=== PATIENT | female | born 1945 | race Caucasian/White ===

== ENCOUNTER 2016-10-12 19:19 | Inpatient (IN) | payer MEDICARE ==
[~2016-10-12] VITALS: Ht 157.5 cm; Wt 69.5 kg
[2016-10-12 19:00] VITALS: BP 153/87
[~2016-10-12 19:19] MED LIST: ARICEPT10 MG PO; ARTANE2 MG PO; ARTIFICIAL TEAR15 ML EACH EYE; ATIVAN0.5 MG PO; CELEXA10 MG PO; DEPAKOTE250 MG PO; DEPAKOTE500 MG PO; FISH OIL 1,0001 CA1 PO; LISINOPRIL5 MG PO; MELATONIN 3 MG1 TAB PO; MOBIC7.5 MG PO; NAMENDA10 MG PO; NAMENDA5 MG PO; NORCO 10/325 TA1 TA1 PO; NORCO 5/325 TAB1 TA1 PO; PRAVACHOL10 MG PO; PREPARATION H O57 GM TP; REMERON15 MG PO; TUMS500 MG PO; VITAMIN D31000 UNIT PO; ZYPREXA10 MG PO
[2016-10-12] MEDS ORDERED: VITAMIN B COMPL1 TAB PO (19:52)
[2016-10-12] MEDS ORDERED: VISTARIL25 MG PO (19:54)
[2016-10-12] MEDS ORDERED: RESTORIL15 MG PO (19:56)
[2016-10-12] MEDS ORDERED: VITAMIN D31000 UNIT PO (19:57)
[2016-10-12] MEDS ORDERED: GINKGO BILOBA120 MG PO (19:59)
[2016-10-12] MEDS ORDERED: ACETAMINOPHEN325 MG PO (20:01)
[2016-10-12] MEDS ORDERED: ZYPREXA5 MG PO (20:02)
[2016-10-12] MEDS ORDERED: HALDOL5 MG PO (20:03)
[2016-10-12 20:16] VITALS: BP 153/87
--- NOTE | 2016-10-13 00:34 | NUR ---
Recieved atient from [facility] by group home van accompanied by shelter staff, alert and oriented to self, consents signed and code word 'fine and dandy' medications entered and labs ordered, will continue to monitor.
[2016-10-13 06:50] LABS: BASOPHILS 0.1 % (0.0-2.0); EOSINOPHILS 2.3 % (0-7); HEMATOCRIT 39.5 % (36.0-48.0); HEMOGLOBIN 13.3 g/dL (12-16); IMMATURE GRANULOCYTES 0.1 % (0-5); LYMPHOCYTES 40.8 % (15-50); MCH 29.5 pg (26.0-34.0); MCHC 33.7 g/dL (31.0-37.0); MCV 87.6 fL (80.0-100.0); MEAN PLATELET VOLUME 10.9 fL (7.4-10.4); MONOCYTES 9.9 % (2-11); NEUTROPHILS 46.8 % (40-80); RBC 4.51 10x6/uL (4.00-5.40); RDW 14.6 % (11.5-14.5); WBC 6.9 10x3/uL (4.8-10.8)
[2016-10-13 06:51] LABS: PLATELET COUNT 184 10x3/uL (130-400)
[2016-10-13 06:55] LABS: HEMOGLOBIN A1C 5.2 % (4.8-6.0)
[2016-10-13 07:12] LABS: ALBUMIN 4.2 g/dL (3.4-5.0); ANION GAP 17.3 mmol/L (8-16); BILIRUBIN - TOTAL 0.42 mg/dL (0.2-1.3); CALCIUM 9.7 mg/dL (8.5-10.1); CARBON DIOXIDE 24.7 mmol/L (21.0-32.0); CHOL - HDL RATIO 2.2 ratio (2.3-4.1); CREATININE - SERUM 1.1 mg/dL (0.6-1.3); PROTEIN - SERUM 7.2 g/dL (6.4-8.2); THYROID STIMULATING HORMONE 1.42 uIU/mL (0.36-3.74)
[2016-10-13 08:30] VITALS: BP 154/91
--- NOTE | 2016-10-13 12:23 | NUR ---
Pt cooperative with staff. Hallucinating, talking to unseen others, delusional. Gets upset if other pts invade her space or looks at her. Tells them to "look away", "back away". Although will try to be helpful to other patients at times. Medications given as ordered. Redirect, reorient as needed. Pt compliant with meds, redirects well. Will continue to monitor and continue plan of care.
[2016-10-13 15:29] VITALS: BMI 23.2
--- NOTE | 2016-10-13 15:29 | NUR ---
1405 Pt combative, kicking, biting, scratching staff when redirected back into dayroom. Ativan 0.5mg po pulled to give. Pt refused to take. Wasted at this time. 1445 Pt continues to be combative. Ativan 0.5mg IM given in left hip.
[2016-10-13 18:02] VITALS: BP 154/91; Ht 157.5 cm; Wt 69.5 kg
[2016-10-13 20:27] VITALS: BP 87/63
--- NOTE | 2016-10-14 04:22 | NUR ---
B) Recieved sitting in the day room on the couch, alert and oriented to self, impatient and restless at times, I) Administered perscribed medications, redirected as needed, R) Medications refused by patient because 'they are not the right shape and color' no redirection or explianation would convince her to take her medication P) Continue plan of care, continue to monitor.
[2016-10-14 05:16] LABS: RAPID PLASMA REAGIN Non Reactive (Non Reactive)
[2016-10-14 06:15] LABS: VITAMIN D 25 HYDROXY 42.3 ng/mL (30.0-100.0)
[2016-10-14 09:17] LABS: FOLATE (FOLIC ACID) - SERUM 19.1 ng/mL (>3.0)
[2016-10-14 09:40] VITALS: BP 164/108
--- NOTE | 2016-10-14 15:31 | NUR ---
(B)RECEIVED PATIENT SITTING IN A CHAIR AT THE NURSES STATION. ORIENTED TO SELF, MONTH AND DATE. POOR INSIGHT INTO THE REASON FOR HOSPITALIZATION RELATING "JUST GOT BUSY BUSY BUSY AND NEEDED SOME SLEEP. MY THINKING NEEDS TO BE CHECKED." CHILDLIKE AT TIMES AEB WANTING TO WHISPER IN YOUR EAR OR WILL SPELL A WORD INSTEAD OF SAYING IT. OBSERVED TALKING TO UNSEEN OTHERS AND WHEN ASKED WHO SHE WAS TALKING TO PATIENT RELATED (SPELLLING THE ANSWER) "MYSELF." FREQUENTLY ASK TO MAKE A PHONE AFTER BEONG TOLD NUMEROUS TIMES THAT PHONE CALLS START AT 5:30. RANDOMLY SINGS SONGS. (I)ADMINISTER MEDS AND MONITOR COM- PLIANCE. REDIRECT FOR CHILDLIKE BEHAVIORS. (R)MED COMPLIANT. POOR REDIRECTION AND CONTINUES TO SEEK ATTENTION. (P)CONTINUE POC.
[2016-10-14 19:30] VITALS: BP 186/95
--- NOTE | 2016-10-15 04:40 | NUR ---
PATIENT IN DAYROOM, CALLING OUT TO STAFF CONSISTENTLY TO TALK, NON-SENSICAL. REFUSES MEDICATION. LAUGHING AND TALKING TO NO ONE. WHEN ASKED ABOUT HALLUCINATIONS PATIENT DENIES. PATIENT IS GUARDED AND ACCUSED NEIGHBOR OF "COPYING" HER. TRIED TO REDIRECT BUT PATIENT IS UNABLE TO FOLLOW CONVERSATION. CONTINUE TO MONITOR. CONTINUE PLAN OF CARE.
[2016-10-15 08:27] VITALS: BP 138/96
--- NOTE | 2016-10-15 09:42 | PN ---
PATIENT:STEPHANIE DOS SANTOS MEDICAL RECORD: [id number] LOCATION:[facility] ADMISSION DATE: 10/12/16 PROGRESS NOTE DATE OF SERVICE: 10/14/2016 SUBJECTIVE: No coherent complaint. OBJECTIVE: The patient continues to show intrusiveness and inappropriate behavior. The patient has to be redirected from interfering with other patients. On exam, the patient shows peculiar mood. She alternates between laughing and behaving in a hostile fashion. Speech is characterized by loose associations. Content of thought is delusional. Sensorium shows no change. ASSESSMENT: No change in diagnosis. PLAN: 1. Maintain current medication. 2. Continue supportive therapy. TRANSINT:[id number] Voice Confirmation ID: [id number] DOCUMENT ID: [id number] HOLLI CASTRO III, MD at 0942 CC: [id number] DICTATION DATE: 10/14/16 1307 CATH LAB MANAGER: 10/14/16 1559 ADM IN [place] [address] [place] [id number]
--- NOTE | 2016-10-15 09:42 | PSY ---
PATIENT NAME:STEPHANIE DOS SANTOS MEDICAL RECORD: [id number] : 43 LOCATION:[facility] ADMISSION DATE: 10/12/16 ACCOUNT: [id number] PSYCHIATRIC EVALUATION DATE OF EVALUATION: 10/13/16 Initial Psychiatric Workup IDENTIFYING DATA: This is the second Snf admission and one of numerous lifetime psychiatric hospitalizations for this 71-year-old unmarried white female. HISTORY OF PRESENT ILLNESS: This patient is a long-term resident of [facility]. She carries a past history of both schizophrenia and dementia. [facility] reports that the patient had not been sleeping for about 2 days. She had become combative, especially with other residents and had to be redirected. The patient had been treated on routine basis with Zyprexa, but for some reason been stopped, it was reinstituted, but the patient has continued to show worsened psychotic behavior, agitation and eventually combativeness. For this reason, she was admitted. PAST PSYCHIATRIC HISTORY: The patient has had numerous previous psychiatric hospitalizations. She was followed for a number of years at [facility]. She has had treatment with a wide range of antipsychotic medications. Previous inpatient stays have included [facility]. PAST MEDICAL HISTORY: Significant for osteoarthritis, rectal prolapse, osteoporosis, old CVA and a previous diagnosis of Alzheimer's. The patient also has a history of hypertension for which she takes lisinopril. MEDICATION: At the time of admission included lisinopril 40 mg daily, vitamin D supplements, fish oil, Restoril 15 mg at bedtime, Pravachol 10 mg at bedtime for hyperlipidemia and Zyprexa 5 mg daily. ALLERGIES: None listed. FAMILY HISTORY: Noncontributory. SOCIAL HISTORY: The patient is single. No substance abuse issues, chronic custodial resident. MENTAL STATUS: On interview, the patient is extremely disorganized. Her mood is somewhat irritable. Affect is quite peculiar and inappropriate. Speech is characterized by loose associations. Content of thought exhibits delusional ideation and possible auditory hallucinations. On sensorium testing, the patient is oriented to person and to place, but does not cooperate further for sensorium testing. DIAGNOSTIC IMPRESSION: AXIS I: Schizophrenia, chronic undifferentiated type, possible dementia by history. AXIS II: No diagnosis. AXIS III: Hypertension, hypercholesterolemia. AXIS IV: Severe. AXIS V: 28. PLAN: 1. The patient is admitted for medication adjustment as indicated. 2. Diet and activities as tolerated. 3. Supportive therapy. 4. Coordinate with referring facility regarding aftercare. TRANSINT:[id number] Voice Confirmation ID: [id number] DOCUMENT ID: [id number] HOLLI CASTRO III, MD at 0942 CC: [id number] DICTATION DATE: 10/13/16 1211 WINDOW GLAZIER: 10/13/16 1238 ADM IN [place] [id number] [place] [id number]
--- NOTE | 2016-10-15 16:14 | NUR ---
(B)RECEIVED PATIENT SITTING IN A CHAIR AT THE NURSES STATION. ORIENTED TO SELF AND PLACE. RELATES THIS PLACE IS "PSYCHIATRY SO YOU CAN CHECK YOUR MENTALITY." POOR INSIGHT INTO THE REASON FOR HOSPITALIZATION RELATING "THEY HAD AN IDEA I NEEDED TO BE HERE AND HERE I AM." PATIENT INFORMED TO THE REPORTED REASON FOR HOSPITALIZATION AND PETEY RELATES "NONE OF THAT IS TRUE." CHILDLIKE AND MAKES REQUEST SUCH "I WANT YOU TO CALL DR SINGLETARY RIGHT NOW, RIGHT NOW" AND STARTS WHISPERING IN NURSE'S EAR THAT SHE WANTS A INFORMATION IN A BOOK ABOUT HOW TO LOOSE WEIGHT AND TELLS THE NURSE IT AN EMERGENCY. WHEN PATIENT IS TOLD THAT IS NOT AN EMERGENCY SHE RELATES "OH NO NO NO. I MEAN A BOOK ABOUT HOW TO GAIN WEIGHT."(I)ADMINISTER MEDS AND MONITOR COMPLIANCE. REDIRECT FOR CHILDLIKE BEHAVIOR . (R)MED COMPLIANT. POOR REDIRECTION AEB MHT BROUGHT PATIENT SOME COFFEE AND PATIENT STOOD IN PLACE WITH ARMS STRETCHED OUT WANTING TECH TO COME AND GIVE HER A HUG. (P)CONTINUE POC AND MAINTAIN FALL PRECAUTIONS.
[2016-10-15 19:30] VITALS: BP 169/90
--- NOTE | 2016-10-16 01:09 | NUR ---
B) Recieved ambulating independantly in the dayroom and dinning room, alert and oriented to self, confused and wandering , I) Administered perscribed medications, redirected as needed, R) Medication compliant, restless at times, P) Continue plan of care, continue to monitor.
[2016-10-16 07:00] VITALS: BP 139/83
--- NOTE | 2016-10-16 16:45 | NUR ---
RECEIVED THIS AM SITTING IN CHAIR AT NURSES STATION.IS ORIENTED TO PERSON AND YEAR.VERY INTRUSIVE,WANTS ALL THE ATTENTION.AMBULATORY WITH STEADY GAIT.WILL CONTINUE WITH PLAN OF CARE,MONITOR FOR SAFETY AND CHANGES.
[2016-10-16 19:30] VITALS: BP 131/106
--- NOTE | 2016-10-16 22:07 | NUR ---
B) PATIENT IS DELUSIONAL AND ADMITS THAT SHE IS HEARING VOICES, SHE SAYS SHE HEARS VOICES, BUT WILL NOT SAY WHAT THEY ARE SAYING, SHE SAYS "SOMETIMES THEY TELL ME SECRETS" PATIENT IS BIZARRE, SHE WILL SAY TO SOME OTHER PATIENTS IF SHE THINKS THEY ARE LOOKING AT HER "TURN AROUND AND FACE THE OTHER WAY" PATIENT AMBULATES INDEPENDENTLY. I) PROVIDE PRESCRIBED MEDS. R) PATIENT IS COMPLIANT WITH MEDS TONIGHT, NO AGGRESSION SEEN THIS PM. P) CONTINUE PLAN OF CARE.
--- NOTE | 2016-10-17 08:51 | PN ---
PATIENT:STEPHANIE DOS SANTOS MEDICAL RECORD: [id number] LOCATION:[facility] ADMISSION DATE: 10/12/16 PROGRESS NOTE DATE OF SERVICE: 10/15/2016 SUBJECTIVE: No coherent complaint. OBJECTIVE: The patient tends to be noncompliant with medication. She exhibits paranoia or delusional ideation. She is intrusive, childlike and demanding. On exam, mood is still somewhat irritable. Affect is very childlike. Speech is rambling and shows loose associations. Content of thought exhibits delusional ideation. Sensorium shows no changed. ASSESSMENT: No change in diagnosis. PLAN: 1. Maintain current medication. 2. Continue supportive therapy. TRANSINT:[id number] Voice Confirmation ID: [id number] DOCUMENT ID: [id number] HOLLI CASTRO III, MD at 0851 CC: [id number] DICTATION DATE: 10/15/16 1116 RIVERS [employer] LAKES BOATMAN: 10/15/16 1146 ADM IN [place] [id number] [place] [id number]
[2016-10-17 09:12] VITALS: BP 138/86
--- NOTE | 2016-10-17 14:10 | NUR ---
B.) Received patient this am, ambulatory on unit. Alert and oriented to name and place, states situation as " I'm here to have my thinking rearranged, making sure my thinking is correct." I.) Monitor medication compliance, redirect for any aggressive or inappropriate beahvior.Refocus to reality versus nonreality. Encourae group participation. Monitor safety. R.) Compliant with medications, occludes responses to some questions, starts whispering, " thats not pubic information, you can clean elbows with a cotton ball and lemon juice." sits on sofa with sheet over her head and peeks out periodiaclly whispering. P.) Continue plan of care and moitoring of behavior and safety.
[2016-10-17 20:23] VITALS: BP 137/72
--- NOTE | 2016-10-17 20:45 | NUR ---
RECEIVED IN HALLWAY. WALKING ABOUT TALKING TO PEERS AND STAFF. ATTEMPTS TO ENTER WRONG ROOM. REDIRECT AND REORIENT NEEDED. COOPERATIVE WITH CARE AND ASSESSMENT. NO SIGNS OF AGGRESSION. REINFORCE FALLS SAFETY. PM MEDS GIVEN ORDERED. RESTING IN BED EYES CLOSED AT THIS TIME. CONTINUE PLAN OF CARE
[2016-10-18 08:13] VITALS: BP 164/77
--- NOTE | 2016-10-18 16:14 | NUR ---
PT IS VERY LABILE WITH MOOD SHIFTING FROM AGITATED TO CALM VERY QUICKLY. PT INTRUSIVE INTO THE CARE OF OTHER PATIENTS. ORIENTED TO PERSON AND PLACE. REDIRECTED NEEDED. PT SET WITH BLANKET OVER HEAD BECAUSE SHE WAS UPSET AFTER BEING REDIRECTED. MEDICATIONS ADMINISTERED ORDERED. FALL PRECAUTIONS MAINTAINED. WILL CONTINUE TO MONITOR AND CONTINUE WITH PLAN OF CARE.
[2016-10-18 20:13] VITALS: BP 183/97
--- NOTE | 2016-10-19 00:09 | NUR ---
RECEIVED IN HALLWAY. WALKING ABOUT TALKING TO STAFF AND PEERS. INTRUSIVE AT TIME AND ATTENTION SEEKING AT TIME. CALM AND COOPERATIVE WITH CARE AND ASSESSMENT. NOTED PARANOIA AT MED PASS. STATING SOMETHING IS IN THE WATER. TOOK MEDS WHOLE BUT CONTINUES TO REFUSE WATER. REDIRECT AND REORIENT. RESTING EYES CLOSED AT THIS TIME. CONTINUE PLAN OF CARE
--- NOTE | 2016-10-19 08:11 | PN ---
PATIENT:STEPHANIE DOS SANTOS MEDICAL RECORD: [id number] LOCATION:[facility] ADMISSION DATE: 10/12/16 PROGRESS NOTE DATE OF SERVICE: 10/18/2016 SUBJECTIVE: No new complaint. OBJECTIVE: The patient remains intrusive. She continues to show very peculiar and inappropriate affect. She has to be redirected frequently. On exam, mood is elevated. Affect is bizarre. Speech is rambling and tangential. Content of thought is positive for delusional ideation. Sensorium shows no change. ASSESSMENT: No change in diagnosis. PLAN: 1. Continue Zyprexa Zydis 10 mg twice a day. 2. Continue other current medications. 3. Continue supportive therapy. TRANSINT:[id number] Voice Confirmation ID: [id number] DOCUMENT ID: [id number] HOLLI CASTRO III, MD at 0811 CC: [id number] DICTATION DATE: 10/18/16 1224 REGISTRAR NURSES' REGISTRY: 10/18/16 1842 ADM IN [place] [id number] [place] [id number]
--- NOTE | 2016-10-19 08:11 | PN ---
PATIENT:STEPHANIE DOS SANTOS MEDICAL RECORD: [id number] LOCATION:[facility] ADMISSION DATE: 10/12/16 PROGRESS NOTE DATE OF SERVICE: 10/17/2016 SUBJECTIVE: No coherent complaint. OBJECTIVE: The patient continues to exhibit paranoid delusional ideation. She is very childlike, very intrusive and requires a redirection. She has been variably cooperative regarding taking medications. On exam, mood is euthymic. Affect is very shallow, simple childlike. Content thought is positive for delusional ideation. Sensorium shows no changes. ASSESSMENT: No change in diagnosis. PLAN: 1. Change Zyprexa to Zyprexa Zydis 10 mg b.i.d. 2. Continue other current medications. 3. Continue supportive therapy. TRANSINT:[id number] Voice Confirmation ID: [id number] DOCUMENT ID: [id number] HOLLI CASTRO III, MD at 0811 CC: [id number] DICTATION DATE: 10/17/16 1232 SKI GUIDE: 10/17/162002 ADM IN [facility] [address] [place] [address]
[2016-10-19 08:36] VITALS: BP 110/61
--- NOTE | 2016-10-19 09:00 | NUR ---
B) Rec'd pt in dining room for b'fast, appetite fair, meds admin as ordered, child-like behavior noted, took meds without difficulty. I) Administer meds as ordered, provide group activity, encouraging continued participation. R) No s/s adverse reaction to medications, no aggression noted, increased confusion noted. P) Cont plan of care including meds and group activity.
--- NOTE | 2016-10-19 10:54 | NUR ---
Nutrition Monitoring and Eval: Chart reviewed. Pt is eating 78% meal avg on a regular diet. Meds and labs noted. +BM. Pt continues at low nutritional risk. RD will continue to monitor pt progress per policy.
[2016-10-19 19:30] VITALS: BP 143/79
--- NOTE | 2016-10-19 21:55 | PN ---
PATIENT:STEPHANIE DOS SANTOS MEDICAL RECORD: [id number] LOCATION:[facility] ADMISSION DATE: 10/12/16 PROGRESS NOTE DATE OF SERVICE: 10/19/2016 SUBJECTIVE: No new complaint. OBJECTIVE: The patient continues to be very childlike and attention seeking. She becomes petulant when she is not the center of attention. On exam, mood is somewhat irritable. Affect is very shallow and at times silly. Content of thought focuses on delusional ideation of a paranoid nature. Sensorium shows no change. ASSESSMENT: No change in diagnosis. PLAN: 1. Continue Zyprexa Zydis 10 mg twice a day. 2. Continue other current medications. 3. Continue supportive therapy. TRANSINT:[id number] Voice Confirmation ID: [id number] DOCUMENT ID: [id number] HOLLI CASTRO III, MD at 2155 CC: [id number] DICTATION DATE: 10/19/16 1128 BUYER BROKER: 10/19/16 1934 ADM IN [place] [id number] [place] [id number]
--- NOTE | 2016-10-19 23:32 | NUR ---
B) Recieved patient ambulating indepedantly in the dinning room, alert and oriented to self and being in a hospital, calm and pleasant, asks lots of questions I) Administered perscribed medications, answered questions as needed, R) Medication compliant, wants to know the name of each pill before taking and what it is for, P0 Continue plan of care, continue to monitor.
[2016-10-20 09:32] VITALS: BP 149/75
--- NOTE | 2016-10-20 10:35 | NUR ---
(B)RECEIVED PATIENT SITTING IN A CHAIR AT THE NURSE'S STATION. ORIENTED X3. RELATES REASON FOR HOSPITALIZATION "GUESS TO CHECK HOW I THINK." CHILDLIKE AND WHISPERS. WANTS HUGS FREQUENTLY. INTRUSSIVE AND GETS IN OTHERS PERSONAL SPACE. ATTENTION SEEKING AND IF A PEER ASKS FOR SOMETHING SHE WILL ASK FOR THE SAME THING. (I)ADMINISTER MEDS AND MONITOR COMPLIANCE. REDIRECT FOR INTRUSSIVE BE- HAVIORS. (R)MED COMPLIANT. FOLLOWS DIRECTION HOWEVER WHEN REDIRECTED PATIENT WILL GO TO SOMEONE ELSE AND SEEK APPROVAL AND ATTENTION. (P)CONTINUE POC AND MAINTAIN FALL PRECCAUTIONS.
[2016-10-20 20:24] VITALS: BP 142/83
--- NOTE | 2016-10-21 02:07 | NUR ---
PATIENT IS ORIENTED TO SELF, TIME, AND PLACE. SHE'S STILL ATTENTION SEEKING AND WHISPERS. SHE IS COOPERATIVE WITH REDIRECTION AND WAS COMPLIANT WITH [employer]. CONTINUE TO MONITOR, CONTINUE PLAN OF CARE
[2016-10-21 09:01] VITALS: BP 148/77
--- NOTE | 2016-10-21 11:02 | NUR ---
B.) Alert and oriented to times three, states reason for hospitalization as second thought on my thinking, is intrusive when nurse converses with others. I.) Administer medication and monitor compliance. Redirect for any inappropriate behavior. Refocus to reality versus nonreality. Monitor safety. R.) Compliant with medications, attention seeking behavior AEB asked for extra cup of coffee, shile waiting she started singing excessive loud and running her finger up and down her lips making noises, when others in group talk she will attempt to talk over them. P.) Continue plan of care and monitoring
[2016-10-21 21:50] VITALS: BP 106/62
--- NOTE | 2016-10-22 02:13 | NUR ---
B) Recieved ambulating in the day room, alert and oriented to self, childlike at times, calm and pleasant, cooperative with care and assessment, I) Administered perscribed medications, redirected as needed, R) Medication compliant, friendly and social with staff, P) Continue plan of care, continue to monitor.
[2016-10-22 09:28] VITALS: BP 135/66
--- NOTE | 2016-10-22 11:57 | PN ---
PATIENT:STEPHANIE DOS SANTOS MEDICAL RECORD: [id number] LOCATION:[facility] ADMISSION DATE: 10/12/16 PROGRESS NOTE DATE OF SERVICE: 10/21/2016 SUBJECTIVE: The patient's case was discussed with staff. She has no new complaint. OBJECTIVE: The patient has been intrusive and difficult to redirect. She has very limited insight about her condition. ASSESSMENT: No change in diagnoses. PLAN: The patient will be maintained on current medicines, which I have reviewed. Her long-term prognosis is guarded. TRANSINT:[id number] Voice Confirmation ID: [id number] DOCUMENT ID: [id number] HUGO HERNANDEZ MD at 1157 CC: [id number] DICTATION DATE: 10/21/16 1441 RAILROAD COOK: 10/21/16 [address] [facility] [address] [place] [address]
--- NOTE | 2016-10-22 12:32 | NUR ---
Alert and oriented to name and place, she now states she is here to "prove I'm alright in the head,I guess." Calm and cooperative with assessment and with peers, attention seeking at times with loud random talking or singing. Calls nurse to go to bathroom with her and stand outside door because " they might come in here, wispers to nurse about things stating it's private and she does'nt want anybody else to hear, sits in corner of room with sheet over her head.Administer medications and monitor compliance, redirect for any attention seeking or intrusive behavior and educate on appropriate behavior. Compliant with medications. Cooperative with staff and peers, no aggression. Came and stood in the middle of the room with somatic complaints of her leg hurting, pressured and rapid talking then asked nurse" is that something a child would say and sound like." redirected to appropriate dialog to report her pain, she then came over to nurse and stated she wanted tylenol for pain. Safety maintained. Continue plan of care.
--- NOTE | 2016-10-22 14:00 | NUR ---
PATIENT ASKED IF SHE CAN HAVE TUMS, SHE CONTINUES TO ASK THIS NURSE FOR MULTIPLE MEDS, THAT ARE FOR DIFFERENT THINGS. SHE WANTS TO GET HER HAIR BRAIDED, SHE IS ADAMANT ABOUT SPEAKING TO [place] AND ASKING THIS NURSE MULTIPLE QUESTIONS.
[2016-10-22 19:30] VITALS: BP 181/92
--- NOTE | 2016-10-23 01:37 | NUR ---
B) Recieved patient ambulating in the day room, alert and oreinted to self, socialable and needy at times, I) Administered perscribed medications, redirected as needed, monitored for falls and safety, R) Medication compliant, confused and wanders from place to place, P) Continue plan of care, continue to monitor.
[2016-10-23 07:00] VITALS: BP 117/71
--- NOTE | 2016-10-23 14:49 | NUR ---
PT RECEIVED SITTING IN CHAIR IN FRONT OF NURSE STATION. PT IS ALERT AND ORIENTED TO PERSON AND PLACE. PT COMPLAINS OF PAIN UNDER LEFT KNEE. TYLENOL IS GIVEN PRN AND WHEN REASSESSED- PT DENIES PAIN. PT IS IRRITABLE AND RESISTANT TO TAKE MEDICATION. PT IS REDIRECTED AND EDUCATED ON THE IMPORTANCE OF MAINTAING MEDICATION REGIMEN. PT AGREES AND HAS TAKEN PRESCRIBED MEDICATIONS. NO AGGRESION IS NOTED. PT IS RESTLESS AT TIMES. NO HALLUCINATIONS OR DELUSIONS ARE NOTED OR REPORTED. SAFETY MEASURES ARE IMPLEMENTED. PT IS REDIRECTED AND REORIENTED NEEDED. WILL CONTINUE WITH PLAN OF CARE. WILL CONTINUE TO MONITOR.
[2016-10-23 19:30] VITALS: BP 128/68
--- NOTE | 2016-10-23 20:36 | NUR ---
RECEIVED IN DAYROOM. SITTING IN CHAIR WITH PEERS AT HER SIDE. WATCHING TV. NOT SOCIALIZING WITH PEERS OR STAFF. CALM AND COOPERATIVE WITH CARE AND ASSESSMENTS. NO SIGNS OF AGGRESSION. CONTINUES TO SIT IN CHAIR QUEITLY WATCHING TV. CONTINUE PLAN OF CARE
[2016-10-24 08:08] VITALS: BP 129/76
--- NOTE | 2016-10-24 10:30 | PN ---
PATIENT:STEPHANIE DOS SANTOS MEDICAL RECORD: [id number] LOCATION:[facility] ADMISSION DATE: 10/12/16 PROGRESS NOTE DATE OF SERVICE: 10/20/2016 SUBJECTIVE: The patient wants to know when she can leave. OBJECTIVE: She is showing some improvement. She is compliant with medication. No side effects noted. The patient is less intrusive. On exam, mood is slightly anxious. Affect very shallow and childlike. Speech is repetitive. Content of thought continues to exhibit delusional ideation. Sensorium shows no change. ASSESSMENT: No change in diagnosis. PLAN: 1. Maintain current medication. 2. Continue supportive therapy. TRANSINT:[id number] Voice Confirmation ID: [id number] DOCUMENT ID: [id number] HOLLI CASTRO III, MD at 1030 CC: [id number] DICTATION DATE: 10/20/16 1210 TIRE CARE MANAGER: 10/20/16 1837 ADM IN [place] [id number] [place] [address]
--- NOTE | 2016-10-24 16:47 | NUR ---
Received this am, alert and oriented to name and place, patient very hyperverbal and has been calling for different staff members asking random questions, that are nonsensical. Administer medications and monitor compliance, redirect for any intrusive or attention seeking behaviors. Reorient as need. Compliant with medications, continues to be hyperverbal, asking random question of staff, going up to them whispering in their ear and consistently call MHT name whenever she s out of room or is with another patient, if not acknowledged she will start singing loudly or making noises with her lips to point paient had to be directed from dining room to day room to eat lunch. Continue to monitor and redirect patient, continue with plan of care.
--- NOTE | 2016-10-24 16:58 | PN ---
PATIENT:STEPHANIE DOS SANTOS MEDICAL RECORD: [id number] LOCATION:[facility] ADMISSION DATE: 10/12/16 PROGRESS NOTE DATE OF SERVICE: 10/24/2016 SUBJECTIVE: No new verbal complaint. OBJECTIVE: The patient continues to exhibit very bizarre behavior. At times, she follows staff members around. Spells accordance instead of saying, she rambles in a nonsensical fashion. She continues to show labile affect. On exam, mood is anxious, affect is very peculiar and childlike. Speech is tangential and flow of thought shows marked loosening of associations. Sensorium shows no change. ASSESSMENT: No change in diagnosis. PLAN: 1. Change Zyprexa to 10 mg in the morning and 15 mg afternoon. 2. Continue other medications. 3. Continue supportive therapy. TRANSINT:[id number] Voice Confirmation ID: [id number] DOCUMENT ID: [id number] HOLLI CASTRO III, MD at 1658 CC: [id number] DICTATION DATE: 10/24/16 1147 FRUIT OR NUT FARMER: 10/24/16 1402 ADM IN [place] [id number] [place] [address]
[2016-10-24 20:00] VITALS: BP 160/85
--- NOTE | 2016-10-24 20:55 | NUR ---
RECEIVED IN DAYROOM. SITTING IN IN CHAIR. SOCIAL WITH STAFF AND PEERS. INTRUSIVE AT TIMES. ATTENTION SEEKING AT TIMES. CALM AND COOPERATIVE WITH CARE AND ASSESSMENT. NO SIGNS OF AGGRESSION. CONTINUES TO BE CALM AND SOCIAL. REDIRECT NEEDED. CONTINUE PLAN OF CARE
[2016-10-25 09:03] VITALS: BP 153/74
--- NOTE | 2016-10-25 16:44 | NUR ---
Received this am, alert and oriented to name and place states reason for being here as " my marbels rearranged." Administer medications and monitor compliance. Redirect for inappropriate beahavior. Monitor safety. Compliant with medications. Hyperverbal this am, intrusive and attention seeking. instructed patient on her plan of care goals and redirected her to appropriate behavior, she states with loud pressured voice " I'm just so happuy, I can hardly stand still." Safety maintained. Continue plan of care.
--- NOTE | 2016-10-25 19:51 | NUR ---
RECEIVED IN DINING ROOM AT TABLE EATING A SNACK. CALM AND COOPERATIVE WITH CARE AND ASSESSMENTS. NO SIGNS FO AGGRESSION. REDIRECT NEEDEED. ENCOURAGE TO EXPRESS NEEDS. CONTINUES TO SIT QUIETLY AT TABLE. CONTINUE PLAN OF CARE
[2016-10-25 22:31] VITALS: BP 143/75
[2016-10-26 08:44] VITALS: BP 121/72
--- NOTE | 2016-10-26 09:45 | NUR ---
Nutrition Monitoring and Eval: Chart reviewed. Pt is eating 83% meal avg on a regular pureed diet. +BM 10/23/16. Meds noted. Pt continues at low nutritional risk. RD will continue to monitor pt progress per policy.
--- NOTE | 2016-10-26 10:49 | NUR ---
B.) Alert and oriented to name and place states she is here because she " I talk out of turn." calm and pleasant during assessment, not hyperverbal this am while waiting for breakfast. I.) Administer medications and monitor compliance. Redirect and reorient as need. Monitor safety. R.) Compliant with medications. No aggression, cooperative with care, less hyperverbal and intrusive today. Social and pleasant with peers. Safety maintained. P.) Continue with plan of care.
[2016-10-26 20:00] VITALS: BP 132/70
--- NOTE | 2016-10-26 23:41 | NUR ---
B) Recieved patient sitting in the day room, alert and oriented to self, restless at times, calm and cooperative with staff, I) Administered perscribed medications, monitored for safety, R) Medication compliant, resting now quietly in her room, P) Continue plan of care.
[2016-10-27 09:05] VITALS: BP 151/80
--- NOTE | 2016-10-27 10:26 | PN ---
PATIENT:STEPHANIE DOS SANTOS MEDICAL RECORD: [id number] LOCATION:[facility] ADMISSION DATE: 10/12/16 PROGRESS NOTE DATE OF SERVICE: 10/25/2016 SUBJECTIVE: No new complaint. OBJECTIVE: The patient has not shown any aggressiveness over the last 24 hours. She continues to show rambling speech. On exam, mood is slightly anxious. Affect is peculiar and distant. Speech is tangential. Content of thought exhibits moderate delusional ideation. Sensorium shows no change. ASSESSMENT: No change in diagnosis. PLAN: 1. Advance Zyprexa to 15 mg twice a day. 2. Continue other current medications. 3. Continue supportive therapy. TRANSINT:[id number] Voice Confirmation ID: [id number] DOCUMENT ID: [id number] HLOLI CASTRO III, MD at 1026 CC: [id number] DICTATION DATE: 10/25/16 1218 END FINDER FORMING DEPARTMENT: 10/25/16 1229 ADM IN [place] [id number] [place] [address]
--- NOTE | 2016-10-27 13:01 | NUR ---
(B)RECEIVED PATIENT STANDING AT THE NURSE'S STATION ASKING FOR SCRUBS. ORIENTED TO SELF AND PLACE. RELATES THE REASON FOR HOSPITALIZATION "I NEEDED TO REARRANGE MY MARBLES." INTRUSSIVE AND INTERRUPTS CONVERSATIONS. WATCHES OTHER PEERS AND WILL ASK FOR SOMETHING SHE SEES THEM GETTING. TRIES TO TELL PEERS WHAT TO DO AND WILL TELL ON THEM TO STAFF MEMBERS. (I)ADMINISTER MEDS AND MONITOR COMPLILANCE. REDIRECT FOR INTRUSSIVE ATTENTION SEEKING BEHAVIORS. (R)MED COMPLIANT. CONTINUES TO TELL ON PEERS AND TRIES TO TELL OTHERS WHAT TO DO. CONTINUES TO TRY AND MONOPOLIZE CONVERSATIONS. CHILDLIKE. (P)CONTINUE POC AND MAINTAIN FALL PRECAUTIONS.
--- NOTE | 2016-10-27 14:31 | PN ---
PATIENT:STEPHANIE DOS SANTOS MEDICAL RECORD: [id number] LOCATION:[facility] ADMISSION DATE: 10/12/16 PROGRESS NOTE DATE OF SERVICE: 10/26/2016 SUBJECTIVE: The patient's case was discussed with staff. She has no new complaint. OBJECTIVE: The patient has poor insight about her situation, but is better. She is still very delusional. I think her prognosis is guarded and I would anticipate she can be transitioned out of the hospital soon if this level of improvement is maintained. TRANSINT:[id number] Voice Confirmation ID: [id number] DOCUMENT ID: [id number] HUGO HERNANDEZ MD at 1431 CC: [id number] DICTATION DATE: 10/26/16 1419 FILM WAXER: 10/26/16 1541 ADM IN [address] [id number] [place] [address]
[2016-10-27 19:30] VITALS: BP 115/64
--- NOTE | 2016-10-27 22:07 | PN ---
PATIENT:STEPHANIE DOS SANTOS MEDICAL RECORD: [id number] LOCATION:[facility] ADMISSION DATE: 10/12/16 PROGRESS NOTE DATE OF SERVICE: 10/27/2016 SUBJECTIVE: No new complaint. OBJECTIVE: The patient has been doing well. She is tolerating her medications without difficulty. She is much less intrusive. On exam, mood is slightly anxious. Affect is overall still rather childlike. Speech tends to be tangential. Content of thought is negative for suicidal ideation. Sensorium is unchanged. ASSESSMENT: No change in diagnosis. PLAN: 1. Maintain current medications. 2. Continue supportive therapy. TRANSINT:[id number] Voice Confirmation ID: [id number] DOCUMENT ID: [id number] HOLLI CASTRO III, MD at 2207 CC: [id number] DICTATION DATE: 10/27/16 1148 SOFT IRON INSPECTOR: 10/27/16 1345 ADM IN [address] [id number] [place] [address]
--- NOTE | 2016-10-28 01:20 | NUR ---
B) Recieved sitting on the couch in the day room, alert and oriented to self and hospital, calm and cooperative with assessment and , needy and attention seeking at times, childlike behavior, I) Administered perscribed medications, monitored for safety, R) medicaion compliant, P) Continue plan of care .
[2016-10-28 08:37] VITALS: BP 147/75
--- NOTE | 2016-10-28 14:29 | NUR ---
(B)RECEIVED PATIENT STANDING IN THE EL AT THE NURSE'S STATION ASKING FOR SOMEONE TO COME TO HER ROOM AND FIX HER HAIR. ORIENTED TO SELF, PLACE AND DAY. RELATES THE REASON FOR HOSPITALIZATION "BECAUSE THEY THOUGHT I WAS GOFFEY. THAT I WALKED THE EL TO MUCH AND DIDN'T SLEEP ENOUGH." WILL CALL YOUR NAME AND HAVE A REQUEST EACH TIME YOU WALK BY HER. WAS SEEN BY PHYSICIAN AND WHEN HE WALKED TO THE NEXT PATIENT SHE FOLLOWED HIM CALLING HIS NAME. REPEATED THIS BEHAVIOR AGAIN. DIFFERENT SOMATIC COMPLAINT EACH DAY. IF A PEER HAS A BLANKET SHE WANTS A BLANKET, IT THEY ARE WALKING WITH PHYSICAL THERAPY THEN SHE WANTS PT. (I)ADMINISTER MEDS AND MONITOR COMPLIANCE. REDIRECT FOR INTRUSSIVE BEHAVIORS. (R)MED COMPLIANT. REMAINS CHILDLIKE AND ATTENTION SEEKING. POOR REDIRECTION. (P)CONTINUE POC AND MAINTAIN FALL PRECAUTIONS.
--- NOTE | 2016-10-28 17:23 | NUR ---
PATIENT C/O LEG PAIN, SHE HAD HEARD ANOTHER PATIENT REQUEST THE MEDICATION SO SHE ASKED FOR IT ALSO, THEN WHEN THIS NURSE GOT THE MEDICATION READY SHE SAID "NO, I'LL WAIT" PATIENT THEN DID TAKE IT. SHE CONTINUES TO ASK FOR EVERYTHING THAT OTHER PEOPLE ARE ASKING FOR.
[2016-10-28 19:30] VITALS: BP 165/89
--- NOTE | 2016-10-28 20:20 | NUR ---
B) RECEIVED IN DINING ROOM SITTING AT TABLE EATING A SNACK. CALM AND COOPERATIVE WITH ASSESSMENT AND CARE. NO SIGNS OF AGGRESSION. I) VSS. ADMINISTER PRESCRIBED MEDICATIONS. R) MEDICATION COMPLIANT. REDIRECT NEEDED. P) CONTINUE PLAN OF CARE.
[2016-10-29 07:44] VITALS: BP 105/66
--- NOTE | 2016-10-29 13:43 | NUR ---
(B)RECEIVED PATIENT STANDING IN THE EL AT THE NURSE'S STATION ASKING SOMEONE TO FIX HER HAIR. ORIENTED TO SELF AND PLACE. POOR INSIGHT INTO THE REASON FOR HOSPITALIZATION AND WHEN TOLD THE REASON; PATIENT IS IN DENIAL OF THE BEHAVIOR. INTRUSSIVE IN CONVERSATIONS. SOMATIC C/O HAVING A FEVER AND TEMP WAS 98.4, C/O LEG HURTING AND DR ORDERED AN XRAY ON 10/28/16 WITH NO SIGNIFICANT PROBLEMS REPORTED. (I)ADMINISTER MEDS AND MONITOR COMPLIANCE. REDIRECT FOR INTRUSSIVE BEHAVIOR. (R)MED COMPLIANT. REMAINS CHILDLIKE AND ATTENTION SEEKING. (P)CONTINUE POC AND MAINTAIN FALL PRECAUTIONS.
[2016-10-29 19:40] VITALS: BP 92/54
--- NOTE | 2016-10-29 22:01 | NUR ---
B) Asking questions repeatedly at change of shift. Complaining of having a bad event happen today but was unable to state what this event was. [place] another resident request a shower, and requested and was given a shower too this evening. I) Administer medications as ordered, monitor behavior, redirect and reorient PRN. Set limits when becomes attention seeking. R) Needy, attention seeking, interrupts other conversations, numerous frequent requests. Compliant with medication. Anxious, nervous. No aggression thus far this shift. P) Monitor per plan of care.
--- NOTE | 2016-10-30 06:18 | PN ---
PATIENT:STEPHANIE DOS SANTOS MEDICAL RECORD: [id number] LOCATION:[facility] ADMISSION DATE: 10/12/16 PROGRESS NOTE DATE OF SERVICE: 10/28/2016 SUBJECTIVE: No new complaint. OBJECTIVE: The patient continues to relate in an impulsive and childlike fashion. However, she is redirectable and is tolerating her medications well. On exam, mood is slightly anxious. Affect very shallow and childlike. Speech is repetitive. Content of thought still shows moderate delusional ideation. Sensorium shows no change. ASSESSMENT: No change in diagnosis. PLAN: 1. Continue current medications. 2. Continue supportive therapy. TRANSINT:[id number] Voice Confirmation ID: [id number] DOCUMENT ID: [id number] HOLLI CASTRO III, MD at 0618 CC: [id number] DICTATION DATE: 10/28/16 1236 TOOL PUSHER: 10/28/16 2107 ADM IN [place] [id number] [place] [address]
[2016-10-30 07:48] VITALS: BP 118/63
--- NOTE | 2016-10-30 18:03 | NUR ---
RECEIVED THIS AM AMBULATORY IN [facility].PLEASANT AND COOPERATIVE.IS STILL SOMEWHAT INTRUSIVE BUT STATES"I HOPE I DONT HAVE ANYTHING BAD WRITTEN IN MY CHART TODAY,I'M GOING HOME TOMORROW."HAS BEEN QUIETER TODAY,HAS SLEPT A COUPLE HOURS THIS AFTERNOON.COMPLIANT WITH MEDS.WILL CONTINUE WITH PLAN OF CARE,MONITOR FOR CHANGES AND SAFETY.
[2016-10-30 19:30] VITALS: BP 154/86
--- NOTE | 2016-10-31 01:55 | NUR ---
PATIENT IN ROOM. SHE HASN'T BEEN ATTENTION SEEKING. SHE IS MORE INDEPENDENT IN BEHAVIOR. PLEASANT, COMPLAINT WITH MEDICATION. CONTINUE TO MONITOR, CONTINUE PLAN OF CARE.
[2016-10-31 07:46] VITALS: BP 105/59
--- NOTE | 2016-10-31 08:45 | PN ---
PATIENT:STEPHANIE DOS SANTOS MEDICAL RECORD: [id number] LOCATION:[facility] ADMISSION DATE: 10/12/16 PROGRESS NOTE DATE OF SERVICE: 10/30/2016 SUBJECTIVE: No new complaint. OBJECTIVE: The patient remains intrusive and attention seeking. Her behavior is very childish. On exam, mood is slightly anxious. Affect is very shallow, superficial and childlike. Speech is repetitive. Content of thought is positive for moderate delusional ideation. Sensorium shows no change. ASSESSMENT: No change in diagnosis. PLAN: 1. Maintain present medications. 2. Continue supportive therapy. TRANSINT:[id number] Voice Confirmation ID: [id number] DOCUMENT ID: [id number] HOLLI CASTRO III, MD at 0845 CC: [id number] DICTATION DATE: 10/30/16 0828 PIPE FITTER MARINE: 10/30/16 1043 ADM IN [place] [id number] [place] [id number]
[2016-10-31 13:00] VITALS: BP 113/54
--- NOTE | 2016-10-31 18:02 | NUR ---
B.) Alert and oriented times three, states she is here because" I got a little off track, I'm ready to leave now." I.) Administer medications and monitor compliance. Monitor for any aggression, outburst and inappropriate behavior. Redirect for any inappropriate behavior and educate on positive coping skills. Monitor safety. R.) Compliant with mediations. pleasant and social with staff and some peers. No aggression. Cooperative with care. Safety maintained. P.) Continue with plan of care.
[2016-10-31 20:00] VITALS: BP 87/49
--- NOTE | 2016-10-31 20:11 | NUR ---
RECEIVED IN DAYROOM. SITTING IN CHAIR WITH STAFF BY HER SIDE. SOCIALIZING AT TIMES. CALM AND COOPERATIVE WITH CARE AND ASSESSMNET. NO SIGNS OF AGGRESSION. ENCOURAGE TO EXPRESS NEEDS. CONTINUE PLAN OF CARE.
[2016-11-01 07:25] VITALS: BP 82/51
--- NOTE | 2016-11-01 10:19 | PN ---
PATIENT:STEPHANIE DOS SANTOS MEDICAL RECORD: [id number] LOCATION:[facility] ADMISSION DATE: 10/12/16 PROGRESS NOTE DATE OF SERVICE: 10/31/2016 SUBJECTIVE: No new complaint. OBJECTIVE: The patient continues to be somewhat intrusive, but overall is doing much better. We are awaiting approval from the office of long-term care prior to transfer. On exam, mood is slightly elevated. Affect is very childlike. Speech is tangential and occasionally pressured. Content of thought is unchanged. Sensorium unchanged. ASSESSMENT: No change in diagnosis. PLAN: 1. Continue current medications. 2. Continue supportive therapy. TRANSINT:[id number] Voice Confirmation ID: [id number] DOCUMENT ID: [id number] HOLLI CASTRO III, MD at 1019 CC: [id number] DICTATION DATE: 10/31/16 1049 HOISTER: 10/31/16 1453 ADM IN [id number] [place] [address]
--- NOTE | 2016-11-01 12:20 | NUR ---
(B)RECEIVED PATIENT SITTING IN A CHAIR AT THE NURSE'S STATION. ORIENTED TO SELF AND [facility] SENIOR PSYCHIC. RELATES REASON FOR HOSPITALIZATION "THEY THOUGHT I WENT ALITTLE OVER THE EDGE." SOMATIC WITH FREQUENT PHYSICAL C/O. INTRUSSIVE AND ATTENTION SEEKING AEB WHEN PHYSICIAN SPEAKS WITH HER AND THEY GO TO WALK SHE WILL START CALLING THEIR NAME AND HAVE ANOTHER QUESTION OR COMMENT AND HAS TO BE REDIRECTED FOR INTRUSSIVE BEHAVIOR. (I)ADMINISTER MEDS AND MONITOR COMPLIANCE. REDIRECT NEEDED FOR INTRUSSIVE BEHAVIOR. (R)MED COMPLIANT. CAN FOLLOW INSTRUCTIONS HOWEVER IS CHILDLIKE AND ATTENTION SEEKING. (P)CONTINUE POC AND MAINTAIN FALL PRECAUTIONS.
[2016-11-01 19:16] VITALS: BP 93/50
--- NOTE | 2016-11-01 19:59 | NUR ---
RECEIVED IN DAYROOM. SITTING AT TABLE WITH STAFF WATCHING TV. CALM AND COOPERATIVE WITH CARE AND ASSESSMENTS. NO SIGNS OF AGGRESSION. ENBCOURAGE TO EXPRESS NEEDS. REDIRECT NEEDED. CONTINUES TO SIT QUIETLY. CONTINUE PLAN OF CARE
[2016-11-02 08:06] VITALS: BP 112/64
--- NOTE | 2016-11-02 14:17 | NUR ---
Nutrition Follow Up: Chart reviewed. Pt is eating 73% meal avg on a regular pureed diet. +BM 11/01/16. Meds and labs reviewed. No new wt to assess. Pt with good po intake at this time. Rec continue current diet. RD following.
--- NOTE | 2016-11-02 18:29 | NUR ---
(B)RECEIVED PATIENT AMBULATORY ON UNIT. ORIENTED TO SELF AND PLACE. INTRUSSIVE AND WILL STOP DOCTORS AND STAFF WITH REQUEST AND SOMATIC C/O. DOES NOT INTERACT WITH PEERS BUT ATTEMPTS TO STOP ALL STAFF WITH REQUEST. CHILDLIKE. (I)ADMINISTER MEDS AND MONITOR COMPLIANCE. REDIRECT FOR INTRUSSIVE BEHAVIORS. (R)MED COMPLIANT. POOR REDIRECTION AND IS ATTENTION SEEKING. CONTINUES TO BE SOMATIC AND INTRUSSIVE. (P)CONTINUE POC AND MAINTAIN FALL PRECAUTIONS.
[2016-11-02 20:39] VITALS: BP 98/46
--- NOTE | 2016-11-03 00:35 | NUR ---
B) Recieved patient sitting in the day room, alert and oriented to self, calm and cooperative with care and assessment, confused and childlike, I) Administered perscribed medications, redirected as needed, monitored for falls and safety, R) Medication compliant, pleasant and friendly, P) Continue plan of care, continue to monitor.
--- NOTE | 2016-11-03 03:55 | DS ---
PATIENT:STEPHANIE DOS SANTOS :43 MEDICAL RECORD: [id number] DISCHARGE SUMMARY ADMISSION DATE: 10/12/16 DISCHARGE DATE: DATE OF ADMISSION: 10/12/2016. DATE OF DISCHARGE: 11/02/2016. HISTORY OF PRESENT ILLNESS: Second halfway admission and one of numerous lifetime psychiatric hospitalizations for this 71-year-old unmarried white female. The patient has a long past history of schizophrenia. She also has a more recent history of dementia. She is a long-term resident at a local senior living. She had been exhibiting elevated behavior, worsened psychosis, intrusiveness and combativeness. Because of worsened mental status, the patient was admitted. For further details, please see previously dictated history. COURSE IN THE HOSPITAL: The patient was seen in consultation by Dr. Amaya for primary care. The patient had the additional comorbidities of hyperlipidemia, osteoarthritis, old CVA, hypertension and osteoporosis. The patient was started on Zyprexa for control of her agitation and dosage was eventually advanced to 15 mg of Zyprexa Zydis twice a day, it was not until the patient was advanced to this level of medication that she showed any improvement at all in terms of her agitation, intrusiveness and flight of ideas and elevated mood. At this point, however, the patient began to show gradual improvement and during the last week of the hospitalization, she was considerably more easy to manage. She was maintained on lisinopril at a dose of 40 mg daily for her blood pressure. She was also kept on Pravachol 10 mg at bedtime for her hyperlipidemia. She was maintained on vitamin D supplements, fish oil and Tylenol twice a day. By the time of discharge, the patient had achieved sufficient stabilization to return to the senior living environment. FINAL DIAGNOSES: AXIS I: Schizophrenia by history, vascular dementia. AXIS II: No diagnosis. AXIS III: Hypertension, hypercholesterolemia, osteoporosis, osteoarthritis, vitamin D deficiency. AXIS IV: Moderate. AXIS V: 40. PLAN: 1. The patient is discharged on current medications. 2. Diet and activities as tolerated. 3. Follow up with primary care assigned to the senior living. TRANSINT:[id number] Voice Confirmation ID: [id number] DOCUMENT ID: [id number] HOLLI CASTRO III, MD at 0355 CC: [id number] DICTATION DATE: 11/02/16 1109 ENTRY LEVEL MANUFACTURING ENGINEER: 11/03/16 0123 ADM IN [facility] [address] [place] [address]
--- NOTE | 2016-11-03 14:12 | NUR ---
(B)RECEIVED PATIENT STANDING IN THE HALLWAY. ORIENTED TO SELF AND THE HOSPITAL. POOR INSIGHT INTO THE REASON FOR HOSPITALIZATION. INTRUSSIVE AND EACH TIME YOU WALK PAST HER SHE CALLS YOUR NAME AND STARTS ASKING RECURRENT QUESTIONS. ISOLATIVE AND SITS WITH HEAD COVERED WITH A BLANKET. GETS UPSET FROM THE BEHAVIOR ANOTHER PEER. (I)ADMINISTER MEDS AND MONITOR COMPLIANCE. REDIRECT FOR INTRUSSIVE BEHAVIOR. (R)MED COMPLIANT. REMAINS INTRUSSIVE AND ATTENTION SEEKING. CHILDLIKE. (P)CONTINUE POC AND MAINTAIN FALL PRECAUTIONS.
[2016-11-03 20:59] VITALS: BP 86/48
--- NOTE | 2016-11-04 03:49 | NUR ---
PATIENT IN DAYROOM, SITTING WITH BLANKET OVER HER HEAD. SHE IS PARTIALLY COMPLIANT WITH MEDICATION, AT FIRST SHE WILL SAY NO, THAN CHANGE HER MIND. SHE IS ORIENTED TO SELF, TIME AND PLACE. NON-AGGRESSIVE. CONTINUE TO MONITOR.
[2016-11-04 07:53] VITALS: BP 127/58
--- NOTE | 2016-11-04 08:00 | NUR ---
B) PATIENT IS AWAKE AND ALERT, SHE KNOWS SHE IS LEAVING. SHE IS HAPPY TO BE GOING HOME, PATIENT IS AMBULATORY, SHE HAS NOT HAD ANY AGGRESSION OR PARANOIA TODAY. I) CONTINUE D/C PLAN. R) PATIENT IS COMPLIANT WITH MEDS AND UNIT MILIEU. P) CONTINUE PLAN OF CARE.
[2016-11-04] MEDS ORDERED: PRAVASTATIN SOD10 MG PO (08:39)
[2016-11-04] MEDS ORDERED: ZYPREXA ZYDI5 MG/TAB PO ×2 (08:41)
--- NOTE | 2016-11-04 08:50 | NUR ---
FAXED ORDERS AND MEDICATION LIST TO [facility], PATIENT WILL D/C AT [address] CASTRO HAS ORDERS IN. PATIENT HAS ONE OUTFIT, ALEXANDRA TOM ASSISTED WITH PUTTING THE OUTFIT ON. PATIENT IS FUNNY SHE HAS SAID "I'VE BEEN HERE SO LONG THE SEASONS HAVE CHANGED" PATIENT IS COMPLIANT, SHE SIGNED D/C PAPERWORK AND TOOK AM MEDS WITH EASE.
--- NOTE | 2016-11-04 09:05 | NUR ---
PATIENT D/C'D WITH AIRPLANE DISPATCHER EN ROUTE TO [facility], HARD COPY PROVIDED FOR RIBBON INKER.
--- NOTE | 2016-11-04 13:38 | PN ---
PATIENT:STEPHANIE DOS SANTOS MEDICAL RECORD: [id number] LOCATION:[facility] EUGENIA Nieves ADMISSION DATE: 10/12/16 PROGRESS NOTE DATE OF SERVICE: 11/03/2016 SUBJECTIVE: The patient's case was discussed with staff. She has no new complaint. OBJECTIVE: The patient is in good behavioral control with limited insight about her condition. She tolerates her medicines well. ASSESSMENT: No change in diagnoses. PLAN: Current medicines and therapies have been reviewed and will be maintained. Long-term prognosis is guarded. TRANSINT:[id number] Voice Confirmation ID: [id number] DOCUMENT ID: [id number] HUGO HERNANDEZ MD at 1338 CC: [id number] DICTATION DATE: 11/03/16 1252 PLASTIC MIXER: 11/03/16 1450 DIS IN 11/04/16 [place] [address] [place] [address]
--- NOTE | 2016-11-07 14:09 | PN ---
PATIENT:STEPHANIE DOS SANTOS MEDICAL RECORD: [id number] LOCATION:MAR[facility] EUGENIA Nieves ADMISSION DATE: 10/12/16 PROGRESS NOTE DATE OF SERVICE: 11/04/2016 SUBJECTIVE: The patient's case was discussed with staff. She has no new complaint. OBJECTIVE: The patient denies intent to harm herself or others. She generally tolerates her medicines well. ASSESSMENT: No change in diagnoses. PLAN: Current medicines have been reviewed and will be maintained. Her long-term prognosis is guarded. I believe her depression is better and I am going to increase her antidepressant medicine. TRANSINT:[id number] Voice Confirmation ID: [id number] DOCUMENT ID: [id number] HUGO HERNANDEZ MD at 1409 CC: [id number] DICTATION DATE: 11/04/16 1332 CASHIER TUBE ROOM: 11/04/162051 DIS IN 11/04/16 [facility] [address] [place] [address]
--- NOTE | 2016-11-07 14:09 | PN ---
PATIENT:STEPHANIE DOS SANTOS MEDICAL RECORD: [id number] LOCATION:MARIA EUGENIA Nieves ADMISSION DATE: 10/12/16 PROGRESS NOTE DATE OF SERVICE: 11/04/2016 SUBJECTIVE: The patient's case was discussed with staff. She has no new complaint. OBJECTIVE: The patient is in good behavioral control with limited insight about her condition. She is a little hyperverbal, but not agitated and certainly is reasonably redirected. ASSESSMENT: Schizophrenia. PLAN: The patient will be maintained on current medicines. I do not see her as acutely dangerous and she can be transitioned out of the hospital today. TRANSINT:[id number] Voice Confirmation ID: [id number] DOCUMENT ID: [id number] HUGO HERNANDEZ MD at 1409 CC: [id number] DICTATION DATE: 11/04/16 1333 BONDED STRUCTURES REPAIRER: 11/04/162052 DIS IN 11/04/16 [place] [id number] [place] [address]
== END 2016-11-04 09:05 | DRG 57 ==
LOC: D.PSYCH 19:19
PROVIDERS: ADMIT Psychiatry & Neurology Psychiatry
DX: G30.9 Alzheimer's disease, unspecified (principal); F02.81 Dementia in other diseases classified elsewhere, unspecified severity, with behavioral disturbance; I69.319 Unspecified symptoms and signs involving cognitive functions following cerebral infarction; F01.50 Vascular dementia, unspecified severity, without behavioral disturbance, psychotic disturbance, mood disturbance, and anxiety; F20.9 Schizophrenia, unspecified; I10 Essential (primary) hypertension; E78.00 Pure hypercholesterolemia, unspecified; M81.0 Age-related osteoporosis without current pathological fracture; M19.90 Unspecified osteoarthritis, unspecified site; E55.9 Vitamin D deficiency, unspecified; E78.5 Hyperlipidemia, unspecified; Z72.0 Tobacco use; M25.562 Pain in left knee

== ENCOUNTER 2017-03-13 15:38 | Inpatient (IN) | payer MEDICARE ==
[~2017-03-13] VITALS: Ht 157.5 cm; Wt 57.1 kg
[2017-03-13] VITALS (9 sets, daily range): BP systolic 88–126; BP diastolic 58–69; Ht 157.5 cm; Wt 57.1 kg
[~2017-03-13 15:38] MED LIST changes: +ACETAMINOPHEN325 MG PO; +GINKGO BILOBA120 MG PO; +HALDOL5 MG PO; +PRAVASTATIN SOD10 MG PO; +RESTORIL15 MG PO; +VISTARIL25 MG PO; +VITAMIN B COMPL1 TAB PO; +ZYPREXA ZYDI5 MG/TAB PO; +ZYPREXA5 MG PO
[2017-03-13 16:11] LABS: BASOPHILS 0.1 % (0-2); EOSINOPHILS 0.4 % (0-7); HEMATOCRIT 38.5 % (36.0-48.0); HEMOGLOBIN 12.6 g/dL (12-16); IMMATURE GRANULOCYTES 1.1 % (0-5); LYMPHOCYTES 36.9 % (15-50); MCH 27.7 pg (26.0-34.0); MCHC 32.7 g/dL (31.0-37.0); MCV 84.6 fL (80.0-100.0); MEAN PLATELET VOLUME 10.2 fL (7.4-10.4); MONOCYTES 6.7 % (2-11); NEUTROPHILS 54.8 % (40-80); PLATELET COUNT 165 10x3/uL (130-400); RBC 4.55 10x6/uL (4.00-5.40); WBC 12.1 10x3/uL (4.8-10.8)
[2017-03-13 16:21] LABS: APTT 32.1 SECONDS (22.8-39.4); INR 1.05 (0.85-1.17); PROTIME 13.6 SECONDS (11.6-15.0)
[2017-03-13 16:35] LABS: ALBUMIN 3.7 g/dL (3.4-5.0); ALKALINE PHOSPHATASE 80 U/L (46-116); ALT (SGPT) 802 U/L (10-68); BILIRUBIN - TOTAL 0.21 mg/dL (0.2-1.3); CALC OSMOLALITY 289 mosm/kg (275-300); CARBON DIOXIDE 25.5 mmol/L (21.0-32.0); CHLORIDE - SERUM 102 mmol/L (98-107); CREATININE - SERUM 1.2 mg/dL (0.6-1.3); POTASSIUM - SERUM 3.5 mmol/L (3.5-5.1); PROTEIN - SERUM 6.7 g/dL (6.4-8.2); SODIUM 141 mmol/L (136-145); UREA NITROGEN 21 mg/dL (7-18); eGFR NON AFRICAN AMERICAN 47 mL/min (90-120)
[2017-03-13 16:42] LABS: GLUCOSE 207 mg/dL (74-106)
[2017-03-13 16:50] LABS: CKMB 1.2 U/L (0.0-3.6); CREATINE KINASE 134 UL (21-215); TROPONIN-I 0.041 ng/mL (0.000-0.060)
[2017-03-13 17:12] LABS: APPEARANCE HAZY (CLEAR); BILIRUBIN NEGATIVE (NEGATIVE); COLOR YELLOW (YELLOW); GLUCOSE NEGATIVE (NEGATIVE); KETONE NEGATIVE (NEGATIVE); LEUKOCYTE ESTERASE NEGATIVE (NEGATIVE); NITRITE NEGATIVE (NEGATIVE); PROTEIN 1+ mg/dL (NEGATIVE); SPECIFIC GRAVITY 1.015 (1.005-1.020); UROBILINOGEN NORMAL (NORMAL)
[2017-03-13 17:16] LABS: EPITHELIAL CELLS 0-5 /hpf (0-5); RED CELLS - URINE >50 /hpf (0-5); WHITE CELLS - URINE 0-5 /hpf (0-5)
[2017-03-13 17:18] LABS: BACTERIA FEW /hpf (NONE SEEN)
--- NOTE | 2017-03-13 20:30 | NUR ---
PT ARRIVED TO ICU; ETT, LE CATH IN PLACE. PT DOES NOT RESPOND TO VERBAL STIMULI. PUPIL 4MM; FIXED. PT VOMITED; SUCTIONED AT BEDSIDE. SLIGHT FEET/LEG MOVEMENT WITHOUT STIMULI. PT WITHDRAWS TO PAINFUL STIMULI ON FEET/LEGS; DOES NOT WITHDRAW TO PAINFUL STIMULI IN UPPER EXTREMITY X2. MECHANICAL VENT. RR CLEAR THROUGHOUT ALL LOBES. S1S2; NSR SHOWING ON MONITOR. ABD FIRM WITH MASS TO RIGHT LOWER ABD/PELVIC AREA. ABSENT BOWEL SOUNDS X4. RADIAL PULSES +2; PEDAL PULSES +1. SKIN PALE. SCAB/SORE TO MID CHEST; REDDENED AREA/BLISTERS INTACT TO LATERAL FOOT/BIG TOE. GENERALIZED BRUISING/SCABS/SORES TO UPPER EXTREMITIES.
--- NOTE | 2017-03-13 20:30 | NUR ---
RESTRAINTS IN PLACE ON ARRIVAL TO ICU.
--- NOTE | 2017-03-13 21:00 | NUR ---
OGT IN PLACE AT [facility]. BROWN CONTENT COLLECTED IN SUCTION CANNISTER.
--- NOTE | 2017-03-13 21:11 | NUR ---
UNABLE TO REACH [facility] FOR MAR AND REPORT OF TODAYS EVENTS.
[2017-03-13 21:17] LABS: CKMB 2.1 U/L (0.0-3.6); CREATINE KINASE 164 UL (21-215)
[2017-03-13 21:22] LABS: TROPONIN-I 0.405 ng/mL (0.000-0.060)
--- NOTE | 2017-03-13 23:20 | NUR ---
REASSESSMENT COMPLETE. NO ACUTE CHANGES FROM PREVIOUS ASSESSMENT. VSS. NO DISTRESS NOTED. OGT IN PLACE TO LIS.
[2017-03-14] VITALS (25 sets, daily range): BP systolic 68–841; BP diastolic 49–944
--- NOTE | 2017-03-14 01:16 | NUR ---
PT REMAINS UNABLE TO AROUSE. DOES NOT OPEN EYES TO PAINFUL STIMULI. VSS. NO DISTRESS NOTED. WILL CONTINUE TO MONITOR.
[2017-03-14 01:41] LABS: CKMB 2.4 U/L (0.0-3.6)
[2017-03-14 01:42] LABS: CREATINE KINASE 215 UL (21-215); TROPONIN-I 0.491 ng/mL (0.000-0.060)
--- NOTE | 2017-03-14 01:45 | NUR ---
NURSE FROM [facility] CALLED TO CHECK ON PT. WAS TAKING CARE OF PT AT TIME OF CODE. [facility] NURSE STATES THAT PT WAS ON TOILET WHEN CALLED TO TELL NURSE THAT WASN'T FEELING WELL; AT THAT TIME WAS ASSISTED TO FLOOR AND 5 MINUTES BEFORE AMBULANCE ARRIVES CODED. BP 210/100'S. [facility] CALLED [facility] TO INFORM OF PT CONDITION AND BEING SENT TO [facility]. [facility] HAS NOT MADE CONTACT TO ICU. ER STATED THEY ATTEMPTED TO CALL FAMILY WITH NO ANSWER. REQUESTED EMAR TO BE SENT; [facility] NURSE STATES THEY WILL SEND IT TOMORROW AND WILL CALL TO VERIFY FAX NUMBER. PT DOES NOT HAVE A DESIGNATED POA.
--- NOTE | 2017-03-14 02:10 | NUR ---
COMPLETE LINEN CHANGE. BATH GIVEN.
--- NOTE | 2017-03-14 03:10 | NUR ---
REASSESSMENT COMPLETE. PUPILLARY CHANGES NOTED; STRABISMUS UPWARD IN RIGHT EYE; PUPIL 3MM FIXED IN RIGHT EYE; 4MM FIXED IN LEFT EYE. NO MOVEMENT OR RESPONSE TO PAINFUL STIMULI IN UPPER EXTREMITIES. RESTRAINTS REMOVED. LEFT WRIST PIV FLUSHED; PATENT.
[2017-03-14 04:10] LABS: BASOPHILS 0.1 % (0-2); EOSINOPHILS 0.2 % (0-7); HEMATOCRIT 37.2 % (36.0-48.0); HEMOGLOBIN 12.4 g/dL (12-16); IMMATURE GRANULOCYTES 0.2 % (0-5); LYMPHOCYTES 24.8 % (15-50); MCH 27.3 pg (26.0-34.0); MCHC 33.3 g/dL (31.0-37.0); MEAN PLATELET VOLUME 9.8 fL (7.4-10.4); MONOCYTES 8.5 % (2-11); NEUTROPHILS 66.2 % (40-80); PLATELET COUNT 151 10x3/uL (130-400); RBC 4.54 10x6/uL (4.00-5.40); RDW 16.8 % (11.5-14.5)
[2017-03-14 04:26] LABS: MCV 81.9 fL (80.0-100.0); WBC 8.8 10x3/uL (4.8-10.8)
[2017-03-14 04:36] LABS: ANION GAP 14.9 mmol/L (8-16); CALCIUM 8.4 mg/dL (8.5-10.1); CARBON DIOXIDE 28.9 mmol/L (21.0-32.0); CREATININE - SERUM 1.2 mg/dL (0.6-1.3)
[2017-03-14 04:45] LABS: POTASSIUM - SERUM 2.8 mmol/L (3.5-5.1)
--- NOTE | 2017-03-14 06:19 | NUR ---
DR. SINGLETARY NOTIFIED ABOUT CRITICAL POTASSIUM. ORDERS FOR ELECTROLYTE PROTOCOL RECEIVED.
--- NOTE | 2017-03-14 06:19 | NUR ---
SPOKE WITH DR. SINGLETARY. UPDATE ON PT CONDITION GIVEN. SEE EMAR FOR DETAILS.
--- NOTE | 2017-03-14 06:30 | NUR ---
ATTEMPTED TO CONTACT DR. KIRK. ANSWERING SERVICE STATED THAT DR. KIRK DID NOT ACCEPT CALLS FROM [facility]. IN A NOTE DR. KIRK STATES PT WILL BE SEEN TODAY. WILL PASS TO DAY SHIFT.
--- NOTE | 2017-03-14 07:00 | NUR ---
REC'D REPORT AND RESUMED CARE, VENTILATION IN USE, ETT SECURED, UNRESPONSIVE, OGT WITH BROWNISH DRAINAGE TO CANISTER, PUPILS 4 AND FIXED, LEFT WRIST PIV WITH NS AT 100 CC/HR, KCL 10 MEQ AT 50 CC/HR, LE TO GRAVITY WITH CLEAR YELLOW DRAINAGE TO CANISTER, TTEMP 93.0 AX, BEAR HUGGER APPLIED, ASSESSMENT COMPLTED PER FLOWSHEET, REPOSITIONED TO RIGHT SIDE WITH PILLOW PROPPED TO BACK AND HEELS FLOATED
[2017-03-14 07:51] LABS: CKMB 6.8 U/L (0.0-3.6)
[2017-03-14 07:57] LABS: CREATINE KINASE 426 UL (21-215)
--- NOTE | 2017-03-14 11:13 | NUR ---
Patient Name: STEPHANIE DOS SANTOS Admission Status: ER Accout number: [id number] Admission Date: 03-13-2017 : 1945 Admission Diagnosis:NONTRAUMATIC INTRACEREBRAL HEMORRHAGE, UNSPECIFIED Attending: BAILEY Current LOS: 1 Primary Insurance: MEDICARE A & B Consult received. Chart reviewed. Case discussed with nursing & Dr. Pollack. Confirmed with Elisabeth at [facility] that patient is a ocean transportation intermediary care resident. She states patient was ambulating in facility up until this incident. Requested family/emergency contact information. Elisabeth provided the following: Sister - Bry Collinsran ([place]) Nephew - Garcia Mccabe ([place]) Silvino & Vanessa Sterling ([place]) - relationship unknown Calls placed to all contacts. Voice message left for Garcia & Silvino, requesting they return call at their earliest convenience. No answer & no voice message option for Bry. CM will continue to try & reach family. Mechanical Intern: Loreta Carney * Is the patient Alert and Oriented? No 0 * PCP Dr. Amaya 0 * Preadmission Environment Motor Tune Up Specialist Alf 0 * Facility Name [facility] 0 * ADLs Partial Dependent 0 * List name and contact numbers for known caregivers / representatives who currently or will assist patient after discharge: Sister - Bry Perez Nephew - Garcia Mccabe Silvino & Vanessa Sterling
--- NOTE | 2017-03-14 11:16 | NUR ---
Rec'd call from Mrs. Mccabe (niece in law). She states her , Garcia, is not at home, but she will have him return my call when he returns.
--- NOTE | 2017-03-14 14:21 | NUR ---
Rec'd call from Garcia Mccabe, patients nephew. Updated him on patients current status, plan of care, & prognosis. Answered his questions. He states is the closest living relative. He states his mother was patient's sister. He states patient has 1 living sibling, Bry Perez, who lives in [place] but she has nothing to do with patient. He reports patient has a son, but he was given up for adoption. Garcia states he has had multiple conversations with patient over the years and she would not want to be on life support if there was no hope for meaningful recovery. He states patient has told him several times that she was "going to do the paper work for that". He states he assumed she had taken care of it. According to Elisabeth at [facility], there is no Living Will or POA on file. He has requested patient be removed from life support. Telephone given to MACHO Osullivan to witness wishes - DNR & removal of life support.
--- NOTE | 2017-03-14 14:25 | NUR ---
SPOKE WITH NEPHEW GILSONASH RONDON VIA PHONE, STATES IN LIEU OF HIS AUNTS DIAGNOSIS AND PROGNOSIS THAT HE AGREES, SHOULD BE A DNR AND TAKEN OFF LIFE SUPPORT AT THIS TIME, HE HAS GIVEN INFORMATION RE: HOME TO BE CALLED, [facility] IN [place], [place], STATES THAT HE WILL MAKE CONTACT WITH THEM, AND LET THEM KNOW TO EXPECT A CALL AT PATIENTS [facility], [facility] PHONE # [phone], CONTACT INFORMATION [id number] [place] [address], RISK MANAGEMENT HAS BEEN NOTIFED VIA SOCIAL SERVICES COUNSELOR KARYN. WILL CONTINUE WITH POC, DR. LOPEZ NOTIFIED OF NEPHEWS DECISION.
--- NOTE | 2017-03-14 17:00 | NUR ---
SKIN TEMP HOT, AX TEMP 104.3, COVERS OFF, ICE PACKS PLACED, TO AXILLA, AND GROIN AREA
--- NOTE | 2017-03-14 18:01 | NUR ---
PC TO [facility], SPOKE CAROL PADMA, STATUS AND HISTORY GIVEN, AWAITING CALL FROM, ORAGN COORDINATOR
--- NOTE | 2017-03-14 18:15 | NUR ---
PC FORM KAREN FLOOD COORDINATOR, MICHAEL WILL R/O FOR DONATION BECAUSE OF MEDICAL HISTORY
--- NOTE | 2017-03-14 19:20 | NUR ---
ASSESSMENT COMPLETE. S1S2. SINUS TACHY SHOWING ON MONITOR; OCCASIONAL PVC. MECHANICAL VENT; CRACKLES NOTED BILATERALLY IN UPPER AND MID LOBES; DIMINISHED BILATERALLY IN LOWER LOBES. RADIAL AND PEDAL PULSES PALPATED. SKIN PALE. PUPILS UNEQUAL FIXED. UNRESPONSIVE. SLIGHT MOVEMENT TO FEET WITH PAINFUL STIMULI. TEMP 102.1 ORAL. ABSENT BOWEL SOUNDS X4. OGT TO LIS. LE IN PLACE.
--- NOTE | 2017-03-14 21:30 | NUR ---
NO FAMILY OR VISITORS DURING VISITATION.
--- NOTE | 2017-03-14 22:05 | NUR ---
SPOKE WITH DR. LOPEZ ORDERS RECEIVED. SEE ORDERS FOR DETAILS.
--- NOTE | 2017-03-14 22:10 | NUR ---
INITAL MORPHINE DOSE GIVEN PER ORDERS. RESPRITORY THERAPY NOTIFIED.
--- NOTE | 2017-03-14 22:50 | NUR ---
RESPRITORY THERAPY AT BEDSIDE. EXTUBATION COMPLETE. ORAL CARE AND SUCTIONING PROVIDED. APNEA NOTED. HR 88.
--- NOTE | 2017-03-14 23:23 | NUR ---
PT SHOWING ASYSTOLE ON MONITOR.
--- NOTE | 2017-03-14 23:31 | NUR ---
SPOKE WITH DR. SINGLETARY ABOUT CURRENT PT CONDITION.
--- NOTE | 2017-03-14 23:47 | NUR ---
DR DURANT AT BEDSIDE TO PRONOUNCE. PT .
--- NOTE | 2017-03-14 23:52 | NUR ---
KAREN NOTIFIED OF PT EXPIRATION.
--- NOTE | 2017-03-14 23:59 | NUR ---
SPOKE WITH [facility] ABOUT PT EXPIRATION.
--- NOTE | 2017-03-15 00:22 | NUR ---
ATTEMPTED TO CONTACT NEPHEW WITH NUMBER PROVIDED. UNABLE TO REACH FAMILY.
--- NOTE | 2017-03-15 00:44 | NUR ---
SPOKE WITH POULTRY HELPER; LI. PT WITHIN 5 DAYS OF BEING ADMITTED FROM [facility].
--- NOTE | 2017-03-15 01:51 | NUR ---
PT RELEASED TO [facility].
--- NOTE | 2017-03-15 14:03 | CN ---
PATIENT NAME:STEPHANIE BELL MEDICAL RECORD: [id number] : 43 LOCATION:[id number] ADMIT DATE: 03/13/17 ACCOUNT: [id number] CONSULTING PHYSICIAN: EPIFANIO LOPEZ MD REFERRING PHYSICIAN: GARY AMAYA MD DATE OF CONSULTATION: 03/14/2017 CONSULTATION NOTE CONSULT REQUESTING PHYSICIAN: Gary Amaya MD REASON FOR CONSULTATION: Vent management. HISTORY OF PRESENT ILLNESS: Ms. Bell is a 71-year-old female. She is now orally intubated and unresponsive. The patient is a halfway resident. The patient became unresponsive and she was resuscitated and intubated on the field. Brought into the ER, workup showed she has a pontine intracerebral bleed. Seen by Dr. Caro and he is giving a very bad prognosis. The patient was also hypertensive. Now, the patient is orally intubated and sedated. The history was obtained by talking to the nursing staff and reviewing the patient's notes. REVIEW OF SYSTEMS: Not obtainable. PAST MEDICAL HISTORY: 1. History of hypertension. 2. Alzheimer disease. 3. Osteoarthritis. 4. Schizophrenia. 5. History of CVA. 6. Osteoarthritis. 7. History of tobacco abuse in the past, possible underlying COPD. PAST SURGICAL HISTORY: The detail is not obtainable. ALLERGIES: There are no known drug allergies. MEDICATIONS: On TerraWi was reviewed. PERSONAL AND SOCIAL HISTORY: The patient is a current everyday smoker. FAMILY HISTORY: Noncontributory. PHYSICAL EXAMINATION: GENERAL: Now, the patient is orally intubated and sedated. VITAL SIGN: The blood pressure is 96-112, respirations 14, temperature 93-97.3, SpO2 is 98% on assist control. Tidal volume of 550, PEEP of 5 and 60% oxygen. HEENT: Conjunctiva is pink. Pupils are fixed and nonreactive. NECK: Supple and no JVD. CHEST: Excursion is minimal on both sides. No wheeze and no rales. HEART: Rate and rhythm regular. Normal heart sounds. No murmur. ABDOMEN: Soft, bowel sounds present. No hepatosplenomegaly. RECTAL: Deferred. EXTREMITIES: No cyanosis, no clubbing, and no pedal edema. SKIN: Warm, normal turgor. CONSULT REPORT [id number] STEPHANIE BELL CENTRAL NERVOUS SYSTEM: The patient has a fixed pupil, unresponsive. DIAGNOSTIC DATA: Chest radiograph: On the March 13, the ET tube is in good position. The heart size is normal. There is no acute infiltrate. CT scan of the head: There is a pontine and mid brain hemorrhage with hemorrhage extending into the fourth ventricle. LABORATORY DATA: ABG: The pH is 7.42, pCO2 is 41.8, the pO2 is 161, bicarb is 31.3. Chemistry: Sodium 146, potassium 2.8, chloride 105, bicarbonate is 28.9. BUN is 25, creatinine 1.2, glucose 135. CBC: The WBC on admission was 12.1, hemoglobin is 12.6, hematocrit 38.5, the platelet count is 165. IMPRESSION: 1. Status post cardiopulmonary arrest. 2. Intracerebral bleed. 3. Acute respiratory failure secondary to post cardiopulmonary arrest. 4. Hypertension, uncontrolled. 5. Dementia. 6. Hypothermia. RECOMMENDATION: 1. The patient has high given poor prognosis by Dr. Caro. The patient has multiple comorbidities. She has dementia and history of CVA in the past. The prognosis is very poor. 2. We will continue the heating blanket. 3. Blood pressure control with labetalol. 4. DVT and GI stress ulcer prevention. I agree with Dr. Caro. The patient has a poor prognosis as well as Dr. Amaya as the family is not contactable. We will ask ethic committee and make the patient DNR and hospice care. Dr. Amaya, thank you for involving me in the care of Ms. Bell. TRANSINT:[id number] Voice Confirmation ID: [id number] DOCUMENT ID: [id number] EPIFANIO LOPEZ MD at 1403 CC: [id number] DICTATION DATE: 03/14/17 1008 CYBER SECURITY ADMINISTRATOR: 03/14/17 1057 DIS IN 03/14/17 [id number] [place] [address]
== END 2017-03-14 23:47 | DRG 208 ==
LOC: D.ER 15:38 → D.ICU 18:47
PROVIDERS: Family Medicine; ADMIT Family Medicine
PROC: 5A1945Z Respiratory Ventilation, 24-96 Consecutive Hours (ICD-10-PCS; principal; 2017-03-13)
PROC: 0T9B70Z Drainage of Bladder with Drainage Device, Via Natural or Artificial Opening (ICD-10-PCS; 2017-03-13)
DX: J96.00 Acute respiratory failure, unspecified whether with hypoxia or hypercapnia (principal); I61.9 Nontraumatic intracerebral hemorrhage, unspecified; R40.2343 Coma scale, best motor response, flexion withdrawal, at hospital admission; R40.2113 Coma scale, eyes open, never, at hospital admission; R40.2213 Coma scale, best verbal response, none, at hospital admission; F02.81 Dementia in other diseases classified elsewhere, unspecified severity, with behavioral disturbance; F01.51 Vascular dementia, unspecified severity, with behavioral disturbance; F20.9 Schizophrenia, unspecified; G30.9 Alzheimer's disease, unspecified; I69.919 Unspecified symptoms and signs involving cognitive functions following unspecified cerebrovascular disease; E55.9 Vitamin D deficiency, unspecified; E87.6 Hypokalemia; Z66 Do not resuscitate; M81.0 Age-related osteoporosis without current pathological fracture; E78.5 Hyperlipidemia, unspecified; I10 Essential (primary) hypertension; Z72.0 Tobacco use